=== PATIENT | male | born 1955 | race Caucasian/White ===

== ENCOUNTER → 2024-08-22 10:30 | Outpatient (BNVA) | payer MEDICARE, SELFPAY | PROVIDERS: PCP Family Medicine; Referring Provider Family Medicine; Visit Provider Podiatrist | DX: M10.071 Idiopathic gout, right ankle and foot (principal); L03.116 Cellulitis of left lower limb; R60.0 Localized edema; L97.522 Non-pressure chronic ulcer of other part of left foot with fat layer exposed; M86.9 Osteomyelitis, unspecified; M21.611 Bunion of right foot; M21.612 Bunion of left foot; M20.21 Hallux rigidus, right foot | CPT/HCPCS: 11042; 99204 ==

== ENCOUNTER 2024-08-22 11:35 | Outpatient (CLI) | payer MEDICARE, SELFPAY ==
--- NOTE | 2024-08-22 11:42 | DI.RAD_ITS ---
Exam(s) XR FOOT LT COMPLETE EXAM: XR FOOT LT COMPLETE CLINICAL HISTORY: Comparison, lt foot bunion, M21.612. TECHNIQUE: 2D digital imaging was performed. Three views. COMPARISON: CR LEFT FOOT COMPLETE from 02/23/2014 CR XR FOOT COMPLETE MIN 3V RT from 08/08/2024 CR XR FOOT RT COMPLETE from 08/22/2024 FINDINGS: BONES: No acute fracture is present. No bony destructive lesion is seen. Small spur at the lateral aspect of the 5th metatarsal head appears unchanged. Plantar calcaneal spur are also present. JOINTS: No dislocation present. Moderate to severe narrowing of the 1st MTP joint. Moderate hallux valgus. Spurring at posterior talocalcaneal joint. SOFT TISSUE: Vascular calcifications. IMPRESSION: Moderate degenerative changes at the 1st MTP joint moderate hallux valgus. DATA REPOSITORY: RADIATION DOSE DELIVERED:
--- NOTE | 2024-08-22 11:42 | DI.RAD_ITS ---
Exam(s) XR FOOT RT COMPLETE EXAM: XR FOOT RT COMPLETE CLINICAL HISTORY: Osteomyelitis? gout? Ulcer directly medial, bunion rt foot, hallux rigidus. TECHNIQUE: 2D digital imaging was performed. Three views. COMPARISON: CR LEFT FOOT COMPLETE from 02/23/2014 CR XR FOOT COMPLETE MIN 3V RT from 08/08/2024 FINDINGS: BONES: No acute fracture is present. No bony destructive lesion is seen. There is some deformity of the 1st metatarsal head which could in part be secondary to prior surgery. There are severe degenera tive changes of the 1st MTP joint with prominent spurring. Moderate hallux valgus. There also degen erative changes at the 1st metatarsal sesamoids. There are severe degenerative changes of the interp halangeal joint of the great toe. Accessory navicular. JOINTS: No dislocation present. Spurring noted at the dorsal aspect of the talus and navicular. Ham mertoe deformity of the 2nd toe. SOFT TISSUE: There is gauze overlying the foot. IMPRESSION: Advanced degenerative changes of the 1st MTP joint and hallux valgus. DATA REPOSITORY: RADIATION DOSE DELIVERED:
== END 2024-08-22 11:55 ==
LOC: DI 11:36
PROVIDERS: PCP Family Medicine; Visit Provider Podiatrist
DX: M21.611 Bunion of right foot; M20.21 Hallux rigidus, right foot; M21.612 Bunion of left foot
CPT/HCPCS: 73630

== ENCOUNTER 2024-08-22 12:02 | Outpatient (REF) | payer MEDICARE, SELFPAY | END 2024-08-22 12:03 | disposition home or self-care (01) | LOC: LBN 12:02 | PROVIDERS: PCP Family Medicine; Visit Provider Podiatrist | DX: S91.301A Unspecified open wound, right foot, initial encounter (principal); L03.90 Cellulitis, unspecified; M10.9 Gout, unspecified; M20.21 Hallux rigidus, right foot; M21.611 Bunion of right foot; M86.9 Osteomyelitis, unspecified | CPT/HCPCS: 87070; 87075; 87205 ==

== ENCOUNTER 2024-08-22 12:25 | Outpatient (CLI) | payer MEDICARE, SELFPAY ==
[2024-08-22 11:58] LABS: HCT 46.1 % (40.0-50.0); HGB 14.9 g/dL (13.5-17.5); MCH 30.7 pg (27.0-33.0); MCHC 32.3 % (32.0-36.0); MCV 95 fL (80-95); MPV 10.4 fL (8.0-11.0); Platelet Count 227 10^3/uL (130-400); RBC 4.86 10^6/uL (4.36-5.78); RDW 12.8 % (11.8-14.1); RDW-SD 44.5 fL; WBC 6.39 10^3/uL (4.4-10.8)
[2024-08-22 12:10] LABS: ESR 7 mm/hr (0-20)
[2024-08-22 12:22] LABS: Absolute Eosinophil Count 0.19 10^3/uL (0.0-0.7); Absolute Lymphocyte Count 2.68 10^3/uL (1.2-3.4); Absolute Monocyte Count 1.02 10^3/uL (0.1-0.8); Absolute Neutrophil Count 2.49 10^3/uL (1.2-6.7); Atypical Lymphocytes % 13 %; Bands % 1 %; Diff Comment Manual Differential; RBC Morphology Normal
[2024-08-22 12:32] LABS: C-Reactive Protein 0.51 mg/dL (<or=0.5)
== END 2024-08-22 12:26 | disposition home or self-care (01) ==
LOC: LBO 12:26
PROVIDERS: PCP Family Medicine; Visit Provider Podiatrist
DX: L03.90 Cellulitis, unspecified (principal); E79.0 Hyperuricemia without signs of inflammatory arthritis and tophaceous disease
CPT/HCPCS: 36415; 85652; 84550; 85025; 86140

== ENCOUNTER → 2024-08-31 09:21 | Outpatient (BNVA) | payer MEDICARE, SELFPAY | PROVIDERS: PCP Family Medicine; Referring Provider Family Medicine; Visit Provider Podiatrist | DX: L97.522 Non-pressure chronic ulcer of other part of left foot with fat layer exposed (principal); L03.116 Cellulitis of left lower limb; M10.9 Gout, unspecified; M21.611 Bunion of right foot; M21.612 Bunion of left foot; M86.9 Osteomyelitis, unspecified; M20.21 Hallux rigidus, right foot | CPT/HCPCS: 99214 ==

== ENCOUNTER 2024-09-05 06:58 | Day surgery (SDC) | payer MEDICARE, SELFPAY ==
[2024-09-05 07:12] VITALS: BP 151/100; PULSE 77; RESP 20; TEMP 36.4; O2SAT 99
[2024-09-05] MEDS: Lactated Ringers 1,000 ML 30 ML IV (07:30)
--- NOTE | 2024-09-05 07:39 | W.ANESPRE ---
General Info Date of Service Date Performed: 09/05/24 Height: 5 ft 11 in Weight: 94.7 kg Body Mass Index (BMI): 29.1 Surgical Procedure: Operation Date: 09/05/24 08:10 Proposed Procedure Side Surgeon p Bone Biopsy of Foot Right Arleen Ivy DPM Meds Allergies and Home Medications Allergies Allergy/AdvReac Type Severity Reaction Status Date / Time Horse/Equine Containing Allergy Mild Unknown Verified 09/05/24 07:10 Products Home Medication ?Medication ?Instructions ?Recorded allopurinol 100 mg tablet 100 mg PO DAILY 08/18/24 apixaban 5 mg tablet (Eliquis) 5 mg PO BID 08/18/24 diltiazem HCl 180 mg 180 mg PO HS 08/18/24 capsule,extended release 24 hr mupirocin 2 % topical ointment 1 applic topical TID 08/18/24 prednisolone 5 mg tablet See Rx Instructions PO BID 08/31/24 Current Visit Medications: Current Medications Generic Name Dose Route Start Last Admin Trade Name Freq PRN Reason Stop Dose Admin Ringer's Solution 1,000 mls @ 30 mls/hr 09/05/24 06:00 09/05/24 07:30 IV 09/05/24 23:59 30 mls/hr INFUSION LASHONDA Administration Cefazolin Sodium/Dextrose 2 gm in 50 mls @ 100 mls/hr 09/05/24 06:00 Ancef Duplex IVPB 09/05/24 23:59 PREOP LASHONDA IV Miscellaneous Supplies 1 each 09/05/24 06:00 Iv Access IV 09/05/24 23:59 DIRECTED LASHONDA Sodium Chloride 0 ml 09/05/24 06:00 Normal Saline Flush 10 Ml Syr IV 09/05/24 23:59 PRN PRN Sodium Chloride 0 ml 09/05/24 06:00 Normal Saline 10 Ml Vial IJ 09/05/24 23:59 DIRECTED PRN Sterile Water 0 ml 09/05/24 06:00 Water,Injection,Sterile 10 Ml Vial IJ 09/05/24 23:59 DIRECTED PRN PFSH Active Problems Active Problems: Problem Status Onset Code Ulcer of left foot with fat layer exposed Acute L97.522 Hallux rigidus of right foot Acute M20.21 Osteomyelitis Acute M86.9 Bunion, right foot Acute M21.611 Bunion, left foot Acute M21.612 Cellulitis Acute L03.90 Hypertension Chronic I10 Osteoarthritis of knee Acute M17.9 Chronic a-fib Acute I48.20 Foot ulcer Acute L97.509 Arthralgia of ankle Acute M25.579 Arthropathy Acute M12.9 Sleep apnea Chronic G47.30 Osteoarthritis Chronic M19.90 Gout Chronic M10.9 Hyperuricemia Chronic E79.0 Foot pain, left Acute M79.672 Medical History Medical History Cellulitis of left foot A-fib Tobacco Smoking/Tobacco Use Status: Current-Occasional Tobacco Type: cigars Alcohol Alcohol Intake: current Alcohol intake frequency: 3 or more drinks per day Alcohol type: wine Substance Use Substance use: Occasionally Substance use type: marijuana Details: Last use 09/04/24 Vital Signs and Lab Results Vital Signs Most Recent Vital Signs in EMR: Most Recent Vital Signs Temp Pulse Resp BP Pulse Ox 36.4 C L 77 20 151/100 H 99 09/05/24 07:12 09/05/24 07:12 09/05/24 07:12 09/05/24 07:12 09/05/24 07:12 Lab Results Blood Type / Crossmatch: No Data to Display Complete Blood Count: White Blood Count 20 10^3/uL (4.4-10.8) H 08/29/24 20:56 Red Blood Count 4.7 10^6/uL 08/29/24 20:57 Hemoglobin 14.4 g/dL 08/29/24 20:57 Hematocrit 44.2 % 08/29/24 20:58 Platelet Count 227 10^3/uL (130-400) 08/22/24 11:55 Complete Metabolic Panel: BUN 13 mg/dL (7-18) 08/29/24 20:55 Creatinine 1.01 mg/dL 08/29/24 20:55 Est GFR (CKD-EPI 2020) 80 mL/min/ 08/29/24 20:56 C-Reactive Protein 0.51 mg/dL (<or=0.5) H 08/22/24 11:55 Liver Function Panel: No Data to Display Coagulation Panel: No Data to Display Cardiac Panel: No Data to Display Arterial Blood Gas: No Data to Display Venous Blood Gas: No Data to Display Pancreas Panel: No Data to Display Thyroid Panel: No Data to Display Infectious Disease: No Data to Display Blood Cultures: No Data to Display Toxicology Panel: No Data to Display Anesthesia Assessment and Plan Anesthesia History Personal History: No History of Anesthesia Complications Family History: No Family History of Anesthesia Complications Exercise Tolerance Exercise Tolerance: Metabolic Equivalents>4 Pertinent Negatives Pertinent Negatives: No Symptoms of GERD Cardiac & Pulmonary Exam Cardiac Exam: Normal S1/S2 Heart Sounds Pulmonary Exam: Clear Bilateral Breath Sounds Implantable Cardiac Device Does patient have a Pacemaker or an ICD?: No Airway Exam Known Difficult Airway: No Mallampati Class: 2 Mouth Opening: Normal (> 3cm) Thyromental Distance: Greater than 3 cm Neck Range of Motion: Full ROM Neck Circumference: Normal Teeth Condition: Normal Dentition ASA Classification ASA Score: ASA 3 Emergency Case?: No NPO Status NPO Status: NPO Clears >2 hours, Solids >8 hours Anesthesia Plan Resuscitation Status: Full Code Anesthesia Technique: General Anesthesia Airway Planned: Natural Airway Monitors Used: Standard Monitors
[2024-09-05 07:42] VITALS: BMI 29.1
--- NOTE | 2024-09-05 08:33 | BONE_PTH ---
PATIENT: Alec Patino LOC: [facility] U#:[id number] AGE/SX: 69/M ROOM: RE09/05/[address]: Arleen Ivy DPM : 1955 BED: DIS: 09/05/2024 SPEC #: [id number] RECD: 09/05/24 13:09 STATUS: DANIELA REFrancisco #: [id number] HEMAL: 09/05/24 08:[address]: Arleen Ivy DEPT: Surgical Specimen RECD BY: Vicky Pinon ENTERED: 09/05/24 13:11 SP TYPE: Bone OTHR : JUANJO SAMANO Tissues: 1 - BONE BX/CURRETTE NOT PATH FRACTURE Procedures: GROSS AND MICRO LEVEL 5 DECALCIFICATION Comments: [id number] (SUBMITTED IN 100% ETHANOL)
[2024-09-05] MEDS: Lidocaine 1% Pres-Free 30 ML VIAL (08:34)
[2024-09-05] MEDS: ceFAZolin 2 GM/50 ML BAG IVPB (08:37)
[2024-09-05 08:51] VITALS: BP 98/66; PULSE 72; RESP 18; TEMP 36.3; O2SAT 95
--- NOTE | 2024-09-05 08:51 | W.PM.DSUDISC ---
Date of service: 09/05/24 Discharge Plan Disposition Patient Disposition: Home Condition: Stable Discharge Details Attending Provider: Arleen Ivy Primary Care Provider: JUANJO SAMANO Home Meds and New Rx's Prescriptions: No Action allopurinol 100 mg tablet 100 mg PO DAILY mupirocin 2 % ointment 1 applic topical TID diltiazem HCl 180 mg capsule,extended release 24hr 180 mg PO HS Eliquis 5 mg tablet 5 mg PO BID oxycodone-acetaminophen [Percocet] 5-325 mg tablet 1 tab PO Q8H MDD 3 pills 3 Days Qty: 9 0RF prednisolone 5 mg tablet See Rx Instructions PO BID Rx Instructions: unsure of dosage orally twice a day; Discharge Instructions Additional Instructions: Please keep the dressings clean, dry and intact. Do not let the dressings get wet. You may loosen the outer layer of dressings if you have pain. Keep your right foot elevated at all times. Apply ice behing the knee, ankle and along the bunion site 10 min on and 20 min off as much as possible. Please use your crutches and boot for ambulaton. Pain meds have been sent to your pharmacy. Please follow up on as scheduled. Present to the ER if you experience any calf pain, chest pain, shortness or breath, dizziness or any unusual symptoms. Stand Alone Forms: Podiatry Instructions-DSU Equipment/Supplies: Partial Weight Bearing Crutches Activity:: Elevate Shower/Bathe:: Cover Diet:: Normal Diet Discharge Orders Discharge Orders: Discharge Order (Routine); Ordered 09/05/24 Ordered By: Arleen Ivy DS: Diagnosis Discharge Diagnosis (1) Ulcer of left foot with fat layer exposed: Status: Acute (2) Osteomyelitis: Status: Acute (3) Hallux rigidus of right foot: Status: Acute (4) Gout: Status: Chronic (5) Hyperuricemia: Status: Chronic
--- NOTE | 2024-09-05 08:57 | W.PM.OP ---
Operative Note Operative Note PRE-OP DIAGNOSIS: Gout versus osteomyelitis, right first metatarsal head POST-OP DIAGNOSIS: same PROCEDURE: Bone biopsy, first metatarsal head right foot SURGEON: Arleen Ivy ANESTHESIA TYPE: Local By Surgeon (10 mL 1% Lidocaine pre op) Refer to Anesthesia Record ESTIMATED BLOOD LOSS: 1 PATHOLOGY: other (Bone biopsy, right first metatarsal head) COMPLICATIONS: None Patient was transported to: same day Patient's condition: stable Indications: 69-year-old male patient with longstanding history of gout and ulceration, with drainage, to the medial aspect of the first metatarsal head, right foot. There is a large bony prominence which is resulting in ulceration at this location. I discussed the importance of eventually removing the medial eminence and potentially fusing the first metatarsophalangeal joint to prevent recurrence of ulceration and gout. However, due to recurrent ulceration I recommended a bone biopsy and cultures to rule out osteomyelitis as the first step. Patient understood and agreed. I discussed all the risks, benefits and possible complications of the procedure with the patient including but not limited to pain, nerve pain, infection, infection to bone, bleeding, need for further surgery or amputation. Patient understands that he will most likely require another surgery. No guarantees or warranties were made or implied. Patient consented to the procedure. Consent form signed reviewed and in chart. Medical clearance signed reviewed and in chart. No contraindications noted to the procedure at this time. Procedure Description: Patient was brought to the operating room and placed in supine position with the anesthesia team. After induction of general anesthesia, a Moore block was performed to the right foot using 10 mL 1% lidocaine plain. Timeout was carried out. The right lower extremity was then scrubbed, prepped and draped in the usual aseptic manner. Attention was directed to the dorsal medial aspect of the left first metatarsal head on a 0.5 cm linear longitudinal incision was made directly over the ulceration to obtain the most advertising account representative bone biopsy specimen. The incision was deepened through the skin and subcutaneous tissue. The periosteum was reflected medially and laterally. A biopsy trocar was used to take 2 punch biopsy specimens from this incision site. These were passed from the operative field. Incision site was then flushed with copious amounts of sterile saline. The skin was then reapproximated using 4-0 Prolene. Dressings were then applied with Xeroform gauze, 4 x 4, Kerlix and Desmodn wrap. Patient tolerated the procedure and anesthesia well with vital signs stable and vascular status intact to the right lower extremity. Patient was transferred to same-day for further monitoring. Patient was prescribed pain medication. Patient is to follow-up in office on . Date of Procedure: 09/05/24
--- NOTE | 2024-09-05 08:57 | W.ANESPOSTOP ---
Postoperative Evaluation Date, Time and Location Date Performed: 09/05/24 Time Performed: 08:57 Patient Location: Day Surgery Unit Vital Signs Most Recent Imported Vital Signs: Most Recent Vital Signs Temp Pulse Resp BP Pulse Ox 36.3 C L 72 18 98/66 L 95 09/05/24 08:51 09/05/24 08:51 09/05/24 08:51 09/05/24 08:51 09/05/24 08:51 Pain Score Most Recent Pain Score: Most Recent Pain Score Pain Level 0 09/05/24 08:51 Assessment Mental Status: Arousable with meaningful communication Airway and Respiratory Function: Patent airway with normal (patient baseline) respiratory exam Cardiovascular Function: Hemodynamically Stable Hydration Status: Adequately Hydrated Nausea & Vomiting: No Nausea or Vomiting Pain: Pt. Denies Any Pain Peripheral Nerve Block: Patient did not receive a nerve block
[2024-09-05 09:20] VITALS: BP 109/80; PULSE 75; RESP 18; TEMP 36.3; O2SAT 99
== END 2024-09-05 10:00 | disposition home or self-care (01) ==
PROVIDERS: PCP Family Medicine; Visit Provider Podiatrist
PROC: (CPT 20220; principal; 2024-09-05 08:00)
DX: L97.522 Non-pressure chronic ulcer of other part of left foot with fat layer exposed (principal); M20.21 Hallux rigidus, right foot; M1A.0710 Idiopathic chronic gout, right ankle and foot, without tophus (tophi); D75.89 Other specified diseases of blood and blood-forming organs
CPT/HCPCS: 20220; 00123; 87070; 87075; 87205; 88304; 88307; 88311; J0690; J1100; J2003; J2371; J2405; J2704

== ENCOUNTER → 2024-09-08 10:55 | Outpatient (BNVA) | payer MEDICARE, SELFPAY | PROVIDERS: PCP Family Medicine; Referring Provider Family Medicine; Visit Provider Podiatrist | DX: Z98.890 Other specified postprocedural states (principal); M10.9 Gout, unspecified; L03.114 Cellulitis of left upper limb; L97.522 Non-pressure chronic ulcer of other part of left foot with fat layer exposed; M21.611 Bunion of right foot; M21.612 Bunion of left foot; M86.9 Osteomyelitis, unspecified; M20.21 Hallux rigidus, right foot; M76.61 Achilles tendinitis, right leg | CPT/HCPCS: 99213 ==

== ENCOUNTER → 2024-09-21 13:08 | Outpatient (BNVA) | payer MEDICARE, SELFPAY | PROVIDERS: PCP Family Medicine; Referring Provider Family Medicine; Visit Provider Podiatrist | DX: Z98.890 Other specified postprocedural states (principal); M10.9 Gout, unspecified; L97.522 Non-pressure chronic ulcer of other part of left foot with fat layer exposed; M21.611 Bunion of right foot; M21.612 Bunion of left foot; M86.8X7 Other osteomyelitis, ankle and foot; M20.21 Hallux rigidus, right foot; M76.61 Achilles tendinitis, right leg | CPT/HCPCS: 99215 ==

== ENCOUNTER → 2024-10-11 14:38 | Outpatient (BNVA) | payer MEDICARE, SELFPAY | PROVIDERS: PCP Family Medicine; Referring Provider Family Medicine; Visit Provider Podiatrist | DX: Z98.890 Other specified postprocedural states (principal); M10.9 Gout, unspecified; L03.116 Cellulitis of left lower limb; L97.522 Non-pressure chronic ulcer of other part of left foot with fat layer exposed; M21.612 Bunion of left foot; M21.611 Bunion of right foot; M86.9 Osteomyelitis, unspecified; M20.21 Hallux rigidus, right foot; M76.61 Achilles tendinitis, right leg | CPT/HCPCS: 99214 ==

== ENCOUNTER → 2024-11-03 15:27 | Outpatient (BNVA) | payer MEDICARE, SELFPAY | PROVIDERS: PCP Family Medicine; Referring Provider Family Medicine; Visit Provider Podiatrist | DX: M20.21 Hallux rigidus, right foot (principal); Z98.890 Other specified postprocedural states; M10.9 Gout, unspecified; L03.116 Cellulitis of left lower limb; L97.522 Non-pressure chronic ulcer of other part of left foot with fat layer exposed; M21.612 Bunion of left foot; M21.611 Bunion of right foot; M86.9 Osteomyelitis, unspecified; M76.61 Achilles tendinitis, right leg | CPT/HCPCS: 99214 ==

== ENCOUNTER 2024-11-03 17:00 | Outpatient (CLI) | payer MEDICARE, SELFPAY ==
--- NOTE | 2024-11-03 16:45 | DI.RAD_ITS ---
Exam(s) XR FOOT RT COMPLETE EXAM: XR FOOT RT COMPLETE CLINICAL HISTORY: M20.21 Hallux rigidus, pain in right foot. TECHNIQUE: 2D digital imaging was performed. COMPARISON: CR XR FOOT LT COMPLETE from 08/22/2024 CR XR FOOT RT COMPLETE from 08/22/2024 FINDINGS: 3 views No evidence of fracture or diastasis of the Lisfranc joint. Hallux valgus is again noted and significant degenerative change in the great toe metatarsophalangeal joint. The appearance of the medial aspect of the head of the great toe metatarsal is unchanged fro m 08/22/2024 and may reflect prior surgical shaving of the medial head. No evidence of osteomyelitis . Degenerative changes are again noted in the interphalangeal joint of the great toe and there are dege nerative changes at the great toe metatarsal sesamoids again evident. On the medial aspect of the foot there is an accessory ossicle adjacent to the navicular tuberosity a gain noted. On the lateral view there is again noted dorsal beaking on both sides of the talonavicular joint. IMPRESSION: Multilevel findings as above but unchanged radiographically from 08/22/2024 DATA REPOSITORY: RADIATION DOSE DELIVERED:
== END 2024-11-03 17:20 ==
LOC: DI 17:00
PROVIDERS: PCP Family Medicine; Visit Provider Podiatrist
DX: M20.21 Hallux rigidus, right foot (principal)
CPT/HCPCS: 73630

== ENCOUNTER 2024-11-14 06:23 | Day surgery (SDC) | payer MEDICARE, SELFPAY ==
[2024-11-14] VITALS (12 sets, daily range): BP systolic 92–124; BP diastolic 55–86; PULSE 77–93; RESP 15–20; TEMP 36.1–36.5; O2SAT 92–98; BMI 28.9
[2024-11-14] MEDS: Lactated Ringers 1,000 ML 30 ML IV (07:21)
--- NOTE | 2024-11-14 07:42 | W.ANESPRE ---
General Info Date of Service Date Performed: 11/14/24 Height: 5 ft 11 in Weight: 94.2 kg Body Mass Index (BMI): 28.9 Surgical Procedure: Operation Date: 11/14/24 08:10 Proposed Procedure Side Surgeon p Arthrodesis, 1st Metatarsophalangeal Joint Foot, vs Cheilectomy Right Arleen Ivy DPM Meds Allergies and Home Medications Allergies Allergy/AdvReac Type Severity Reaction Status Date / Time No Known Allergies Allergy Verified 11/14/24 06:38 Home Medication ?Medication ?Instructions ?Recorded apixaban 5 mg tablet (Eliquis) 5 mg PO BID 08/18/24 diltiazem HCl 180 mg 180 mg PO HS 08/18/24 capsule,extended release 24 hr allopurinol 100 mg tablet 300 mg PO DAILY 11/03/24 ibuprofen 800 mg tablet (IBU) 800 mg PO ONCE 11/14/24 Current Visit Medications: Current Medications Generic Name Dose Route Start Last Admin Trade Name Freq PRN Reason Stop Dose Admin Ringer's Solution 1,000 mls @ 30 mls/hr 11/14/24 06:00 11/14/24 07:21 IV 11/14/24 23:59 30 mls/hr INFUSION LASHONDA Administration Cefazolin Sodium/Dextrose 2 gm in 50 mls @ 100 mls/hr 11/14/24 06:00 Ancef Duplex IVPB 11/14/24 23:59 PREOP LASHONDA IV Miscellaneous Supplies 1 each 11/14/24 06:00 Iv Access IV 11/14/24 23:59 DIRECTED LASHONDA Sodium Chloride 0 ml 11/14/24 06:00 Normal Saline Flush 10 Ml Syr IV 11/14/24 23:59 PRN PRN Sodium Chloride 0 ml 11/14/24 06:00 Normal Saline 10 Ml Vial IJ 11/14/24 23:59 DIRECTED PRN Sterile Water 0 ml 11/14/24 06:00 Water,Injection,Sterile 10 Ml Vial IJ 11/14/24 23:59 DIRECTED PRN PFSH Active Problems Active Problems: Problem Status Onset Code Achilles tendinitis, right leg Acute M76.61 Ulcer of left foot with fat layer exposed Acute L97.522 Hallux rigidus of right foot Acute M20.21 Osteomyelitis Acute M86.9 Bunion, right foot Acute M21.611 Bunion, left foot Acute M21.612 Cellulitis Acute L03.90 Hypertension Chronic I10 Osteoarthritis of knee Acute M17.9 Chronic a-fib Acute I48.20 Foot ulcer Acute L97.509 Arthralgia of ankle Acute M25.579 Arthropathy Acute M12.9 Sleep apnea Chronic G47.30 Osteoarthritis Chronic M19.90 Gout Chronic M10.9 Hyperuricemia Chronic E79.0 Foot pain, left Acute M79.672 Medical History Medical History Cellulitis of left foot A-fib Medical History Comments:: Pt. states he is having a current gout flare up on Right ankle Surgical History Surgical History History of bunionectomy of right great toe 12-13 years ago Hx of inguinal hernia repair x 3 Hx of biopsy R foot Tobacco Smoking/Tobacco Use Status: Current-Occasional Tobacco Type: cigars Alcohol Alcohol Intake: current Alcohol intake frequency: 3 or more drinks per day Alcohol type: wine Substance Use Substance use: Occasionally Substance use type: marijuana Details: alcohol: t-1. 1.5 glasses. Marijuana: t-14, smoking, small bowl Vital Signs and Lab Results Vital Signs Most Recent Vital Signs in EMR: Most Recent Vital Signs Temp Pulse Resp BP Pulse Ox 36.5 C 85 20 124/86 98 11/14/24 06:49 11/14/24 06:49 11/14/24 06:49 11/14/24 06:49 11/14/24 06:49 Lab Results Blood Type / Crossmatch: No Data to Display Complete Blood Count: White Blood Count 8.0 10^3/uL (4.4-10.8) 10/19/24 15:59 Red Blood Count 4.7 10^6/uL 10/19/24 15:59 Hemoglobin 14.2 g/dL 10/19/24 16:00 Hematocrit 44.5 % 10/19/24 16:00 Complete Metabolic Panel: Creatinine 0.8 mg/dL 10/19/24 16:01 Est GFR (CKD-EPI 2020) 95 mL/min/ 10/19/24 16:01 Glucose 108 mg/dL 10/19/24 16:02 Liver Function Panel: No Data to Display Coagulation Panel: No Data to Display Cardiac Panel: No Data to Display Arterial Blood Gas: No Data to Display Venous Blood Gas: No Data to Display Pancreas Panel: No Data to Display Thyroid Panel: No Data to Display Infectious Disease: No Data to Display Blood Cultures: No Data to Display Toxicology Panel: No Data to Display Imaging and Studies Imaging and Studies Study information below may be from another EMR and interpreted by another provider. Please see original notes in EMR for more complete details. EKG Summary: 09/01/24: Afib Anesthesia Assessment and Plan Anesthesia History Personal History: No History of Anesthesia Complications Family History: No Family History of Anesthesia Complications Exercise Tolerance Exercise Tolerance: Metabolic Equivalents>4 Pertinent Negatives Pertinent Negatives: No Symptoms of GERD Cardiac & Pulmonary Exam Cardiac Exam: Normal S1/S2 Heart Sounds Pulmonary Exam: Rhonchi Present (Reports he's had a prolonged period of inactivity and attributes less capacity in last few months. No recent viral illnesses.) Implantable Cardiac Device Does patient have a Pacemaker or an ICD?: No Airway Exam Known Difficult Airway: No Mallampati Class: 2 Mouth Opening: Normal (> 3cm) Thyromental Distance: Greater than 3 cm Neck Range of Motion: Full ROM Neck Circumference: Normal Teeth Condition: Normal Dentition ASA Classification ASA Score: ASA 3 Emergency Case?: No NPO Status NPO Status: NPO Clears >2 hours, Solids >8 hours Anesthesia Plan Resuscitation Status: Full Code Anesthesia Technique: General Anesthesia Airway Planned: LMA Monitors Used: Standard Monitors and SedLine
[2024-11-14] MEDS: ceFAZolin 2 GM/50 ML BAG IVPB (08:13)
[2024-11-14] MEDS: Lidocaine 1% Pres-Free 30 ML VIAL (08:38)
--- NOTE | 2024-11-14 08:40 | BONE_PTH ---
PATIENT: Alec Patino LOC: [facility] U#:[id number] AGE/SX: 69/M ROOM: RE11/14/[address]: Arleen Ivy DPM : 1955 BED: DIS: 11/14/2024 SPEC #: [id number] RECD: 11/14/24 13:19 STATUS: DANIELA REQ #: [id number] HEMAL: 11/14/24 08:[address]: Arleen Ivy DEPT: Surgical Specimen RECD BY: Vicky Pinon ENTERED: 11/14/24 13:20 SP TYPE: Bone OTHR DR: JUANJO SAMANO [facility] Tissues: 1 - BONE BX/CURRETTE NOT PATH FRACTURE Procedures: GROSS AND MICRO LEVEL 3 DECALCIFICATION Comments: [id number]
--- NOTE | 2024-11-14 10:15 | DI.RAD_ITS ---
Exam(s) XR FOOT RT LIMITED EXAM: XR FOOT RT LIMITED CLINICAL HISTORY: Hallux rigidus of right foot. TECHNIQUE: 2D digital imaging was performed. COMPARISON: No exams were available for comparison FINDINGS: Fluoroscopy was provided intraoperatively during placement of dorsal fusion plate across the great to e metatarsophalangeal joint. See procedure report for details IMPRESSION: Radiation exposure index/cumulative dose:Ka,r= 0.6071 mGy DATA REPOSITORY: RADIATION DOSE DELIVERED:
--- NOTE | 2024-11-14 10:47 | W.PM.DSUDISC ---
Date of service: 11/14/24 Discharge Plan Disposition Patient Disposition: Home Condition: Stable Discharge Details Attending Provider: Arleen Ivy Primary Care Provider: JUANJO SAMANO Home Meds and New Rx's Prescriptions: No Action diltiazem HCl 180 mg capsule,extended release 24hr 180 mg PO HS Eliquis 5 mg tablet 5 mg PO BID allopurinol 100 mg tablet 300 mg PO DAILY ibuprofen [IBU] 800 mg tablet 800 mg PO ONCE Patient Comments: pt reports BID Discharge Instructions Additional Instructions: Please keep the dressings clean, dry and intact. Do not let the dressings get wet. Please keep your foot elevated at all times. Do not put weight on the right foot. Please use crutches. Apply ice behind the knee, ankle and around the surgical site 10 minutes on, 20 minutes off [id number]. Pain medications were sent to your pharmacy. Follow-up on . Stand Alone Forms: Podiatry Instructions-DSU Equipment/Supplies: Non-Weight Bearing Crutches Activity:: Elevate Remove Dressings/Wound Care:: Do Not Remove Shower/Bathe:: Cover Diet:: Normal Diet Discharge Orders Discharge Orders: Discharge Order (Routine); Ordered 11/14/24 Ordered By: Arleen Ivy DS: Diagnosis Discharge Diagnosis (1) Hallux rigidus of right foot: Status: Acute (2) Bunion, right foot: Status: Acute (3) Gout: Status: Chronic
--- NOTE | 2024-11-14 10:49 | W.PM.OP ---
Operative Note Operative Note PRE-OP DIAGNOSIS: Hallux rigidus, right foot Bunion, right foot Healed ulcer, right foot Gout POST-OP DIAGNOSIS: same PROCEDURE: Arthrodesis, first metatarsophalangeal joint, right foot SURGEON: Arleen Ivy ANESTHESIA TYPE: Local By Surgeon (20 mL 1% lidocaine plain.) Refer to Anesthesia Record ESTIMATED BLOOD LOSS: 5 PATHOLOGY: other (Bone cultures, gouty tophus, right first metatarsophalangeal joint) TOURNIQUET TIME: 118 COMPLICATIONS: None Patient was transported to: same day Patient's condition: stable Implants: MTP standard 0 degree plate 18 x 18 x 18 stable 16 mm locking screw x 3 20 mm locking screw x 1 Indications: 69-year-old male patient with a large bunion deformity with hallux rigidus to the right. Patient recently had an ulcer to the medial aspect of the right first MPJ secondary to bony prominence and gout. Infection has been ruled out at this time however risk does persist. I recommend a fusion. Discussed this in detail with the infectious disease team as well as the patient. We will proceed with first MPJ fusion. Chart was reviewed. Consent form was signed. Images were reviewed. No contraindications to the procedure at this time. 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 Following sedation, local anesthesia was obtained utilizing 20mL % lidocaine plain. An ankle tourniquet was applied to the patient's Right ankle. The foot was then scrubbed, prepped, and draped in the usual aseptic manner. The patient's right foot was then exsanguinated using and esmarc and the tourniquet was then inflated. Attention was then directed to the dorsal aspect of the first metatarsal head of the right foot where an approximately 5cm linear longitudinal incision was made medial and parallel to the tendon of the extensor hallucis longus. The incision was deepened through the subcutaneous tissues using sharp and blunt dissection. Care was taken to identify and retract all vital neural and vascular structures. All bleeders were ligated and cauterized as necessary. At this time a linear longitudinal incision was made and a capsulotomy was performed over the dorsal aspect of the first metatarsal-phalangeal joint. The periosteal and capsular structures were then carefully dissected free and reflected medially and laterally thus exposing the head of the first metatarsal. Utilizing a bone saw, the dorsal prominence of the metatarsal head was resected and passed from the operative field. Utilizing a ronguer, the dorsal, medial and lateral prominences were removed from the base of the proximal phalanx. Bone specimen was sent to microbiology for cultures and pathology. Next, a guide wire was placed centrally in the head of the 1st metatarsal. A reamer was used to reshape the metatarsal head and remove all cartilage. Any cartilage that remained was removed with a bone rasp. The guide wire was removed. The same was done to the base of the proximal phalanx with a guide wire placed centrally in the base. A reamer was used to reshape the base of the proximal phalanx and remove all cartilage. The guide wire was removed. Next, the joint was flushed with copious amounts of sterile saline. The joint was then fenestrated at either end. At this time the metatarsal head and base of the proximal phalanx were compressed together and held in place with a k-wire for temporary fixation. The plate was placed over 1st MTPJ. A BB tack was placed in the proximal and distal medial hole to provide temporary fixation. Fixation and correction was confirmed using intraoperative fluoroscopy and was noted to be excellent. A staple was used then for compression across the joint. Next, locking screws were placed in the remainder of the screw holes. At this time the temporary fixation across the MTPJ was removed. The incision was flushed with copious amounts of normal saline. The periosteal and capsular structures were reaproximated using 2-0 Vicryl. The tourniquet was then deflated. Subcutaneous tissue was then closed with 4-0 Vicryl. Skin edges were reapproximated and coapted using 4-0 nylon. Upon completion of the procedure the incision was dressed with Xeroform gauze, 4x4s, palomo, and an Desmond wrap. The patient tolerated the procedure and anesthesia well and was transferred to the recovery room with all vital signs stable and vascular status intact to the left foot. Following a period of postoperative monitoring the patient will be discharged to home and given written instructions and prescriptions. Patient is to keep the right lower extremity elevated at all times. Patient has an appointment to follow-up on . Date of Procedure: 11/14/24
--- NOTE | 2024-11-14 11:33 | W.ANESPOSTOP ---
Postoperative Evaluation Date, Time and Location Date Performed: 11/14/24 Time Performed: 11:33 Patient Location: Day Surgery Unit Vital Signs Most Recent Imported Vital Signs: Most Recent Vital Signs Temp Pulse Resp BP Pulse Ox 36.3 C L 78 18 108/77 95 11/14/24 11:03 11/14/24 11:03 11/14/24 11:03 11/14/24 11:03 11/14/24 11:03 Pain Score Most Recent Pain Score: Most Recent Pain Score Pain Level 0 11/14/24 11:03 Assessment Mental Status: Awake (Alert & Oriented to Patient Baseline) Airway and Respiratory Function: Patent airway with normal (patient baseline) respiratory exam Cardiovascular Function: Hemodynamically Stable Hydration Status: Adequately Hydrated Nausea & Vomiting: No Nausea or Vomiting Pain: Pt. Denies Any Pain Peripheral Nerve Block: Patient did not receive a nerve block
--- NOTE | 2024-11-14 12:51 | PT.INIE ---
PT Notes Physical Therapy Day Surgery Initial Evaluation Date: 11/14/2024 Referring Doctor: Dr Ivy PT Orders: PT CONSULT: Eval for assistive device Precautions: Nonweightbearing with crutches Patient Profile/Admitting Diagnosis: Patient is 69-year-old male presented status post elective right first MTP arthrodesis by Dr. Ivy on 11/14/2024. Postop uncomplicated. PMHX: Achilles tendinitis, right leg (Acute) Ulcer of left foot with fat layer exposed (Acute) Hallux rigidus of right foot (Acute) Osteomyelitis (Acute) Bunion, right foot (Acute) Bunion, left foot (Acute) Cellulitis (Acute) Hypertension (Chronic) Osteoarthritis of knee (Acute) Chronic a-fib (Acute) Foot ulcer (Acute) Arthralgia of ankle (Acute) Arthropathy (Acute) Sleep apnea (Chronic) Osteoarthritis (Chronic) Gout (Chronic) Hyperuricemia (Chronic) Foot pain, left (Acute) Medical History Cellulitis of left foot A-fib Social History/Home Situation: Pt resides with in 2 story home with no steps to enter through the garage. Pt has 13 steep steps with left rail to his Bedroom and bathtub/shower. Pt's reports they do have a bathroom and a recliner he could sleep on the first floor. Equipment Owned/DME: crutches; Pt was fitted for and issued FWW. Subjective: Pt reports he was NWB for a few days 3 weeks ago and he was able to do it with no issues. Pt and able to vocalize and agree to remain on the first floor of the home until HH PT assesses. Pt initially felt he would be fine however by end of session he was able to realize the potential risk for fall and injury if he utilizes the crutches vs FWW. Pt reports he has a friend that has a knee walker available if the doctor will allow him to use it. Objective: [] General Observation: alert male upright on stretcher with present in room. Mental Status: alert and O x 4, impulsive, pt needed frequent cueing for sequencing and carryover of NWB RLE. Pt agreeable to perform assessment Pain: right shoulder 2/10, right foot denies pain at this time ROM: [] Right Upper Extremity: WNL Left Upper Extremity: WNL BLE: WNL except right ankle and foot NT Strength: [] Right Upper Extremity: shoulder 3/5, elbow 4/5 neurology epilepsy physician strong Left Upper Extremity: Grossly 4/5 Right Lower Extremity: Hip and knee 3/5 ankle not tested Left Lower Extremity: Grossly hip 3+/5 knee 3+/5 ankle 3+/5 Sensation: Intact Bed Mobility/Transfers: Supine to sit independent Sit to stand contact-guard assist with cues for hand placement and crutch management Stand to sit min assist with cues for hand placement and crutch management Bed to chair mod assist of 1 and min assist of 1 with axillary crutches step turn with continuous cues Gait: Mod assist x 2 ambulate 12 feet with axillary crutches with continuous cues for sequencing to shortened step length and to increase left knee extension at mid stance on left. Patient very unstable poor ankle strategies and hip to sustain upright posture without assistance. Balance: Static Sitting: Normal Dynamic Sitting: Good Static Standing: Fair minus with crutches Dynamic Standing: Poor plus with crutches Special Tests: [] Mobility Limitations Standardized Measure [] [facility] 6 clicks Basic Mobility Inpatient Short Form: [] Raw Score: 16 CMS Score: 54.16% Treatment: Informed Consent/Education: Patient instructed in purpose of PT consult. Pt and instructed in use of FWW for all mobility. Pt should take frequent stand and or sit rests while ambulating and limit distances of ambulation to very short ( under 25 feet) d/t fatigue and impaired strength. Patient and vocalized understanding of recommendations for use of FWW, benefits of frequent standing rest while ambulating, not to utilize crutches, and to remain on first floor until assessed by home health PT. Gait training with crutches : Mod A of 2 for stability 12 feet x 1, 8 feet x 1 with continuous cues for sequencing and to straighten left knee during weight bearing as pt has tendency to allow knee flexion at mid stance Gait training with FWW initially mod A of 1 15 feet then advanced to 25 feet x 1 with CGA and wheelchair follow for safety and stand rest every 5 feet. As pt fatigues he is noted to increase left knee flexion at mid stance and have difficulty WB through BUE to swing through. Assessment: Pt is 69 yo male presenting with decline in functional mobility d/t NWB RLE. Pt with impaired right shoulder strength with new onset after starting to lift weights in prep for this surgery and need to be NWB. Patient presents with clinical signs and symptoms consistent with current/admitting diagnoses that have resulted to mobility limitations, gait instability, generalized weakness, and impairment of motor control as demonstrated by the following impairment level findings: 1. Decreased strength to BUE and BLE major muscle groups 2. Impaired standing balance while NWB 3. Limitation of joint range of motion in right foot/ankle 4. impaired functional activity tolerance 5. NWB R foot 6. Impulsivity/ impaired judgement Impairments are contributing to the following functional limitations: 1. Inability to safely ambulate without assistive device 2. Increase completion time for mobility ADL performance 3. Increased fall risk 4. Inability to perform stairs safely at NWB level Patient is assessed as a moderate complexity based on the following: History: 69-year-old male with impairment level findings, functional limitations, and past medical history as indicated above Examination: Demonstrable impairment in strength, balance, and mobility level with underlying impairments and functional limitations as documented above Presentation: evolving Decision Making: moderate Goals: N/A. discharge to home Plan of Care/Treatment Plan: N/A. PT evaluation and 1-2 treatment session only for functional mobility training using recommended AD and for HEP instruction. DISCHARGE RECOMMENDATIONS: Home with HHPT and use of FWW. Pt to remain on first floor of home. Pt to have assistance for all mobility for safety with FWW due to NWB status. Pt should not perform stairs until assessment by HH PT TREATMENT CODE/TIME:29145, [id number]/ [id number] Thank you for the opportunity to participate in the care of this patient. Yane Castaneda PT [facility]
== END 2024-11-14 12:58 | disposition home or self-care (01) ==
PROVIDERS: PCP Family Medicine; Visit Provider Podiatrist
PROC: (CPT 28750; principal; 2024-11-14 08:00)
DX: M20.21 Hallux rigidus, right foot (principal); M21.611 Bunion of right foot; M10.9 Gout, unspecified
CPT/HCPCS: 28750; C1889; 00123; 76000; 87077; 97116; 97162; 73620; 87070; 87075; 87186; 87205; 88304; 88311; J0690; J1100; J1885; J2003; J2371; J2405; J2704; J3010

== ENCOUNTER 2024-11-17 00:57 | Outpatient (CLI) | payer MEDICARE, SELFPAY ==
--- NOTE | 2024-11-17 10:45 | DI.RAD_ITS ---
Exam(s) XR FOOT RT COMPLETE EXAM: XR FOOT RT COMPLETE CLINICAL HISTORY: Post op pain,hallux rigidus rt foot, m20.21,g89.18. TECHNIQUE: 2D digital imaging was performed. COMPARISON: CR XR FOOT RT COMPLETE from 11/03/2024 FINDINGS: 3 views There has been interval surgery with placement of dorsal fusion plate hardware across the great toe m etatarsophalangeal joint. No evidence of fracture nor hardware loosening. No obvious radiographic evidence of osteomyelitis. No new fractures evident in the foot. Degenerative changes again noted in the interphalangeal joint of the great toe. IMPRESSION: Recently placed dorsal fusion hardware across the great toe metatarsophalangeal joint. Satisfactory appearance DATA REPOSITORY: RADIATION DOSE DELIVERED:
== END 2024-11-17 01:17 ==
LOC: DI 00:57
PROVIDERS: PCP Family Medicine; Visit Provider Podiatrist
DX: G89.18 Other acute postprocedural pain (principal); M20.21 Hallux rigidus, right foot; Z98.890 Other specified postprocedural states; M10.9 Gout, unspecified; L03.115 Cellulitis of right lower limb; L97.522 Non-pressure chronic ulcer of other part of left foot with fat layer exposed; M21.612 Bunion of left foot; M21.611 Bunion of right foot; M86.9 Osteomyelitis, unspecified; M76.61 Achilles tendinitis, right leg
CPT/HCPCS: 99024; 73630

== ENCOUNTER 2024-11-24 01:08 | Outpatient (CLI) | payer MEDICARE, SELFPAY ==
--- NOTE | 2024-11-24 07:30 | DI.RAD_ITS ---
Exam(s) XR FOOT RT COMPLETE EXAM: XR FOOT RT COMPLETE CLINICAL HISTORY: monitoring post-op PAIN 11/15 last XR 11/17,HALLUX RIGIDUS RT FOOT. TECHNIQUE: 2D digital imaging was performed of the right foot. Three images were obtained. AP, obl ique and lateral views were obtained. COMPARISON: CR XR FOOT RT COMPLETE from 11/17/2024 FINDINGS: BONES: No acute fracture is present. There are stable postsurgical changes of a 1st MTP joint fusion. The orthopedic hardware appears unchanged. JOINTS: No dislocation present. Degenerative changes are seen in the foot particularly at the interph alangeal joint of the great toe. SOFT TISSUE: There is soft tissue swelling around the 1st MTP joint. IMPRESSION: No significant change in appearance of the right foot since 11/17/2024. DATA REPOSITORY: RADIATION DOSE DELIVERED:
== END 2024-11-24 01:28 ==
LOC: DI 01:08
PROVIDERS: PCP Family Medicine; Visit Provider Podiatrist
DX: G89.18 Other acute postprocedural pain (principal); M20.21 Hallux rigidus, right foot; M86.9 Osteomyelitis, unspecified; Z98.890 Other specified postprocedural states; M10.9 Gout, unspecified; L97.522 Non-pressure chronic ulcer of other part of left foot with fat layer exposed; M21.612 Bunion of left foot; M21.611 Bunion of right foot; M76.61 Achilles tendinitis, right leg; L03.116 Cellulitis of left lower limb
CPT/HCPCS: 99024; 73630

== ENCOUNTER 2024-12-07 00:13 | Outpatient (CLI) | payer MEDICARE, SELFPAY ==
--- NOTE | 2024-12-07 07:00 | DI.RAD_ITS ---
Exam(s) XR FOOT RT COMPLETE EXAM: XR FOOT RT COMPLETE CLINICAL HISTORY: ? Healing,? Hardware failure,osteomyelitis, hallux rigidus rt foot, m86.9,. TECHNIQUE: 2D digital imaging was performed. Three views. COMPARISON: CR XR FOOT RT COMPLETE from 11/24/2024 FINDINGS: BONES: No acute fracture is present. No bony destructive lesion is seen. There is hardware spanning the 1st MTP joint. No change in position. No evidence of fracture. No abnormal bony lucencies. JOINTS: No dislocation present. SOFT TISSUE: Swelling over the dorsum of the foot as well as great toe. No foreign body. IMPRESSION: Soft tissue swelling. Stable appearance of hardware. No abnormal lucencies identified. DATA REPOSITORY: RADIATION DOSE DELIVERED:
== END 2024-12-07 00:33 ==
LOC: DI 00:13
PROVIDERS: PCP Family Medicine; Visit Provider Podiatrist
DX: M20.21 Hallux rigidus, right foot (principal); M86.9 Osteomyelitis, unspecified
CPT/HCPCS: 73630

== ENCOUNTER 2024-12-07 10:00 | Outpatient (RCR) | payer MEDICARE, SELFPAY ==
--- NOTE | 2024-11-23 15:50 | DI.RAD_ITS ---
Exam(s) XR LINE PLACEMENT PICC/CVA EXAM: XR LINE PLACEMENT PICC/CVA CLINICAL HISTORY: CONFIRM PICC PLACEMENT. TECHNIQUE: 2D digital imaging was performed. COMPARISON: No exams were available for comparison FINDINGS: Heart size is normal. The mediastinum is not widened. Lungs are clear with no infiltrates nor pleural effusions although the costophrenic angles are not co mpletely included in the field of view. There is no evidence of pulmonary edema. No pneumothorax. There is a right-sided PICC line in place. Its distal tip is in the distal SVC in good position. IMPRESSION: Satisfactory position of the PICC line. No significant pulmonary findings. DATA REPOSITORY: RADIATION DOSE DELIVERED:
[2024-11-23] MEDS: ceFAZolin 2 GM/50 ML BAG IVPB (16:00)
[2024-11-23] MEDS: Normal Saline Flush 5 ML SYR IVP (16:00)
[2024-11-23 16:29] LABS: HCT 38.3 % (40.0-50.0); HGB 12.6 g/dL (13.5-17.5); MCH 30.4 pg (27.0-33.0); MCHC 32.9 % (32.0-36.0); MCV 92 fL (80-95); Platelet Count 404 10^3/uL (130-400); RBC 4.15 10^6/uL (4.36-5.78); RDW 13.3 % (11.8-14.1); RDW-SD 45.3 fL; WBC 10.14 10^3/uL (4.4-10.8)
[2024-11-23 16:44] LABS: ALT 43 U/L (16-63); AST 25 U/L (15-37); Albumin 2.6 g/dL (3.4-5.0); Alkaline Phosphatase 86 U/L (46-116); Anion Gap 8.3 mmol/L (3-11); BUN 16 mg/dL (7-18); Bilirubin, Total 0.4 mg/dL (0.2-1.0); C-Reactive Protein 10.94 mg/dL (<or=0.5); CO2 27.7 mmol/L (21.0-32.0); CREATININE 0.7 mg/dL (0.70-1.30); Calcium 9.3 mg/dL (8.5-10.1); Chloride 103 mmol/L (98-107); Estimated GFR 98.51 (mL/min/1.73m2); Glucose 97 mg/dL (74-106); Sodium 139 mmol/L (136-145); Total Protein 7.4 g/dL (6.4-8.2)
[2024-11-23 16:49] LABS: Absolute Eosinophil Count 0.41 10^3/uL (0.0-0.7); Absolute Lymphocyte Count 2.33 10^3/uL (1.2-3.4); Absolute Monocyte Count 0.61 10^3/uL (0.1-0.8); Absolute Neutrophil Count 6.79 10^3/uL (1.2-6.7); Bands % 5 %; Diff Comment Manual Differential; RBC Morphology Normal
[2024-11-24] MEDS: Normal Saline Flush 10 ML SYR IVP (12:21)
[2024-11-25] MEDS: Normal Saline Flush 10 ML SYR IVP (08:54)
[2024-11-30] MEDS: Normal Saline Flush 10 ML SYR IVP (10:50)
[2024-11-30 11:24] LABS: Abs Immature Grans 0.06 10^3/uL (0.0-0.06); Absolute Basophil Count 0.06 10^3/uL (0.0-0.2); Absolute Eosinophil Count 0.28 10^3/uL (0.0-0.7); Absolute Lymphocyte Count 2.04 10^3/uL (1.2-3.4); Absolute Monocyte Count 1.21 10^3/uL (0.1-0.8); Basophils % 0.5 %; Eosinophils % 2.5 %; HCT 38.8 % (40.0-50.0); HGB 12.5 g/dL (13.5-17.5); Immature Grans % 0.5 %; Lymphocytes % 17.9 %; MCH 30.4 pg (27.0-33.0); MCHC 32.2 % (32.0-36.0); MCV 94 fL (80-95); MPV 10.7 fL (8.0-11.0); Monocytes % 10.6 %; Platelet Count 420 10^3/uL (130-400); RBC 4.11 10^6/uL (4.36-5.78); RDW 13.5 % (11.8-14.1); RDW-SD 46.8 fL; WBC 11.39 10^3/uL (4.4-10.8)
[2024-11-30 11:25] LABS: Absolute Neutrophil Count 7.75 10^3/uL (1.2-6.7)
[2024-11-30 11:40] LABS: ALT 16 U/L (16-63); AST 23 U/L (15-37); Albumin 2.8 g/dL (3.4-5.0); Alkaline Phosphatase 100 U/L (46-116); Anion Gap 7.3 mmol/L (3-11); BUN 14 mg/dL (7-18); Bilirubin, Total 0.2 mg/dL (0.2-1.0); CO2 28.7 mmol/L (21.0-32.0); CREATININE 0.8 mg/dL (0.70-1.30); Calcium 9.5 mg/dL (8.5-10.1); Chloride 104 mmol/L (98-107); Estimated GFR 94.62 (mL/min/1.73m2); Glucose 74 mg/dL (74-106); Potassium 4.1 mmol/L (3.5-5.1); Sodium 140 mmol/L (136-145); Total Protein 7.7 g/dL (6.4-8.2)
[2024-12-07] MEDS: Normal Saline Flush 10 ML SYR IVP (11:00)
[2024-12-07 11:01] LABS: Abs Immature Grans 0.12 10^3/uL (0.0-0.06); Absolute Lymphocyte Count 2.78 10^3/uL (1.2-3.4); Absolute Monocyte Count 1.89 10^3/uL (0.1-0.8); Basophils % 0.7 %; Eosinophils % 2.2 %; HCT 39.6 % (40.0-50.0); HGB 12.7 g/dL (13.5-17.5); Lymphocytes % 23.1 %; MCH 29.9 pg (27.0-33.0); MCHC 32.1 % (32.0-36.0); MCV 93 fL (80-95); MPV 11.3 fL (8.0-11.0); Monocytes % 15.7 %; Neutrophils % 57.3 %; Platelet Count 325 10^3/uL (130-400); RBC 4.25 10^6/uL (4.36-5.78); RDW 13.5 % (11.8-14.1); RDW-SD 46.3 fL; WBC 12.02 10^3/uL (4.4-10.8)
[2024-12-07 11:09] LABS: Absolute Basophil Count 0.08 10^3/uL (0.0-0.2); Absolute Eosinophil Count 0.26 10^3/uL (0.0-0.7); Absolute Neutrophil Count 6.89 10^3/uL (1.2-6.7)
[2024-12-07 11:15] LABS: ALT 10 U/L (16-63); AST 18 U/L (15-37); Albumin 2.9 g/dL (3.4-5.0); Alkaline Phosphatase 88 U/L (46-116); BUN 14 mg/dL (7-18); Bilirubin, Total 0.5 mg/dL (0.2-1.0); C-Reactive Protein 5.98 mg/dL (<or=0.5); CREATININE 0.8 mg/dL (0.70-1.30); Calcium 9.2 mg/dL (8.5-10.1); Chloride 101 mmol/L (98-107); Estimated GFR 94.62 (mL/min/1.73m2); Glucose 101 mg/dL (74-106); Potassium 4.1 mmol/L (3.5-5.1); Sodium 139 mmol/L (136-145); Total Protein 7.9 g/dL (6.4-8.2)
[2024-12-07 11:17] LABS: Diff Comment Diff Reviewed; RBC Morphology Normal
== END 2024-12-10 23:59 | disposition home or self-care (01) ==
LOC: INF 10:00
PROVIDERS: PCP Family Medicine; Visit Provider Internal Medicine Infectious Disease
DX: M86.18 Other acute osteomyelitis, other site (principal)
CPT/HCPCS: 36573; 36592; 77001; 80053; 96365; 85025; 86140; J0690

== ENCOUNTER 2024-12-09 15:28 | Emergency (ER) | payer MEDICARE, SELFPAY ==
[2024-12-09] VITALS (8 sets, daily range): BP systolic 128–173; BP diastolic 68–87; PULSE 102–117; RESP 14–18; TEMP 36.9–37.9; O2SAT 95–98
--- NOTE | 2024-12-09 17:22 | ED.GENADUL_ITS ---
Discharge Plan Disposition Patient Disposition: Home Condition: Stable Discharge Details Clinical Impression: Gout, Joint pain Primary Care Provider: JUANJO SAMANO ED Provider: Joe Ingram Home Meds and New Rx's Prescriptions: New prednisone 20 mg tablet See Rx Instructions .ROUTE .COMPLEX Qty: 18 0RF Rx Instructions: Take 60 mg for 3 days, 40 mg for 3 days and then 20 mg for 3 days. acetaminophen 500 mg capsule 1,000 mg PO TID PRN (Reason: pain) Qty: 60 0RF Continued diltiazem HCl 180 mg capsule,extended release 24hr 180 mg PO HS Eliquis 5 mg tablet 5 mg PO BID allopurinol 100 mg tablet 300 mg PO DAILY ibuprofen [IBU] 800 mg tablet 800 mg PO ONCE Patient Comments: pt reports BID cefazolin 10 gram recon soln 10 g IV TID Discharge Instructions Additional Instructions: Follow-up with your fur scraper. Take the prednisone as prescribed. If you feel more ill or have severe worsening pain return to the emergency department for reevaluation HPI General Date/Time Provider Initiated Documentation: 12/09/24 15:35 . Limitations to Documentation: no limitations . Information obtained by: patient . History of Present Illness 69 year old M presents to the emergency department with the chief complaint of right knee and ankle pain, described as moderate, Quality is described as aching, and is localized to the right and lower extremity. Patient reports no radiation. and it has been constant. No relieving factors improve symptom(s), No exacerbating factors reported . Patient notes denies diaphoresis and nausea/vomiting. Patient did receive the following treatments prior to arrival, none Related Data Home Medications ?Medication ?Instructions ?Recorded ?Confirmed apixaban 5 mg tablet (Eliquis) 5 mg PO BID 08/18/24 12/09/24 diltiazem HCl 180 mg 180 mg PO HS 08/18/24 12/09/24 capsule,extended release 24 hr allopurinol 100 mg tablet 300 mg PO DAILY 11/03/24 12/09/24 ibuprofen 800 mg tablet (IBU) 800 mg PO ONCE 11/14/24 12/09/24 acetaminophen 500 mg capsule 1,000 mg (2 x 500 mg) PO TID PRN 12/09/24 pain #60 caps cefazolin 10 gram solution for 10 g IV TID 12/09/24 12/09/24 injection prednisone 20 mg tablet See Rx Instructions .Route 12/09/24 .COMPLEX #18 tabs Previous Rx's ?Medication ?Instructions ?Recorded acetaminophen 500 mg capsule 1,000 mg (2 x 500 mg) PO TID PRN 12/09/24 pain #60 caps prednisone 20 mg tablet See Rx Instructions .Route 12/09/24 .COMPLEX #18 tabs Allergies Allergy/AdvReac Type Severity Reaction Status Date / Time No Known Allergies Allergy Verified 12/09/24 15:33 General Stated Complaint: Orthopedic CARYN: 3 Review of Systems All systems reviewed & are unremarkable except as noted in HPI and below Constitutional Constitutional: Denies chills, Denies fever(s) and Denies weakness Cardiovascular Cardiovascular: Denies chest pain and Denies dyspnea Respiratory Respiratory: Denies cough and Denies dyspnea Gastrointestinal Gastrointestinal: Denies abdominal pain, Denies nausea and Denies vomiting Musculoskeletal Musculoskeletal: Reports joint swelling Neurologic Neurologic: Denies weakness Exam Const General: no acute distress Orientation: alert HENMT Head: normal to inspection Ears: external ears normal General nose exam: external nose normal Mouth: moist mucous membranes Eyes General: appearance normal, both eyes and all related structures Neck Neck: normal visual inspection Resp Effort & Inspection: normal respiratory effort and able to speak in complete sentences Cardio Rate: regular rate Skin General skin exam: no rashes or lesions noted Neuro General: patient alert and patient oriented x3 Extrem General: full ROM and capillary refill normal Psych Mental Status: mental status grossly normal Course Vital Signs Vital signs: Vital Signs Temperature 36.9 C 12/09/24 15:29 Pulse 108 H 12/09/24 15:29 Respiratory Rate 18 12/09/24 15:29 Blood Pressure 155/79 H 12/09/24 15:29 Pulse Oximetry 95 12/09/24 15:29 Temperature 36.9 C 12/09/24 15:29 Temperature Source Oral 12/09/24 15:29 Pulse 108 H 12/09/24 15:29 Respiratory Rate 18 12/09/24 15:29 Blood Pressure 155/79 H 12/09/24 15:29 Pulse Oximetry 95 12/09/24 15:29 Medical Decision Making 69 yo male with hx of gout vs psuedogout and recent metatarsophalangeal joint arthrodesis who comes in with chief complaint of several days of right knee and ankle pain. He says that he has been walking differently since the surgery due to discomfort. He states that earlier had to go 101 but when he got here he was afebrile and without taking any antipyretics. Denies any falls or trauma. He is well-appearing see in full sentences. He has mild swelling of the right knee and right ankle without erythema or warmth. He has full range of motion of both joints and intact distal sensation pulses. I suspect gout and less likely septic arthritis given that in 2 joints, there is no warmth erythema. Will obtain screening labs and x-rays and reassess. Labs show mild leukocytosis which she has had before and is inflammatory markers are increased from baseline. He did have a low-grade temperature of 37.9 here. On reassessment he still has absolutely no erythema anywhere on his leg. The right knee x-ray showed a suprapatella fluid collection. He has no tenderness or erythema in this area and he still is full range of motion of the knee. He also has no evidence of erythema at the surgical site on his foot. I suspect his primary issue is gout in the ankle and he has been ambulating and moving around compensating for this which is probably stressing his knee. Given he has no erythema has full range of motion I still doubt septic joint. He feels well enough for discharge and I feel this is reasonable. He is already on IV cefazolin which he administers at home. He has follow-up this week with podiatry. Mariel put him on a short course of prednisone. Return precautions given Differential Diagnosis Differential Diagnosis: gout, arthritis Medical Records Medical records reviewed: Yes I reviewed the patient's medical records. Lab Data Lab results reviewed: Yes I reviewed the patient's lab results. Quality:[facility] Health Related Social Needs: No Data to Display [facility] All Active Problems (Updated 12/09/24 @ 18:46 by Joe Ingram MD) Joint pain (Acute) Post-op pain (Acute) Achilles tendinitis, right leg (Acute) Ulcer of left foot with fat layer exposed (Acute) Hallux rigidus of right foot (Acute) Osteomyelitis (Acute) Bunion, right foot (Acute) Bunion, left foot (Acute) Cellulitis (Acute) Hypertension (Chronic) Osteoarthritis of knee (Acute) Chronic a-fib (Acute) Foot ulcer (Acute) Arthralgia of ankle (Acute) Arthropathy (Acute) Sleep apnea (Chronic) Osteoarthritis (Chronic) Gout (Chronic) Hyperuricemia (Chronic) Foot pain, left (Acute) Medical History Cellulitis of left foot A-fib Surgical History History of bunionectomy of right great toe 12-13 years ago Hx of inguinal hernia repair x 3 Hx of biopsy R foot Social History Smoking/Tobacco Use Status: Current-Occasional Tobacco Type: cigars Smoking risk assessment performed?: Yes Alcohol Intake: current Alcohol Intake frequency: 3 or more drinks per day Alcohol type: wine Drug use: Occasionally Substance use type: marijuana Details: alcohol: t-1. 1.5 glasses. Marijuana: t-14, smoking, small bowl Housing: house Do you feel safe at home: Yes Do you feel safe in your relationship?: Yes PAWSS Have you Been Recently Intoxicated or Drunk Within the Last 30 days?: No Have you Ever Experienced Previous Episodes of Alcohol Withdrawal?: No Have you ever Experienced Withdrawal Seizures?: No Have you ever Experienced Delirium Tremens(DT)s?: No Have you ever undergone Alcohol Rehabilitation Treatment (i.e, inpt ot outpatient treatment programs)?: No Have you ever Experienced Blackouts?: No Have you ever Combined Alcohol with other Downers within the last 90 days?: No Have you ever Combined Alcohol with any other Substance of Abuse during the last 90 days?: No Positive Blood Alcohol level on Presentation? [PCS.BAL]: No Evidence of Increased Autonomic Activity (i.e. HR>120, tremor, sweating, agitation, nausea)?: No Result: 0
[2024-12-09 17:34] LABS: HCT 39.4 % (40.0-50.0); HGB 12.7 g/dL (13.5-17.5); MCH 29.8 pg (27.0-33.0); MCHC 32.2 % (32.0-36.0); MCV 93 fL (80-95); MPV 11.1 fL (8.0-11.0); Platelet Count 335 10^3/uL (130-400); RBC 4.26 10^6/uL (4.36-5.78); RDW 13.5 % (11.8-14.1); RDW-SD 45.9 fL; WBC 14.11 10^3/uL (4.4-10.8)
[2024-12-09 17:37] LABS: ESR 73 mm/hr (0-20)
[2024-12-09 17:50] LABS: Absolute Eosinophil Count 0.28 10^3/uL (0.0-0.7); Absolute Lymphocyte Count 2.82 10^3/uL (1.2-3.4); Absolute Monocyte Count 1.83 10^3/uL (0.1-0.8); Absolute Neutrophil Count 9.17 10^3/uL (1.2-6.7); Atypical Lymphocytes % 0 %; Bands % 2 %
[2024-12-09 17:51] LABS: Diff Comment Manual Differential; RBC Morphology Normal
[2024-12-09 17:52] LABS: ALT 10 U/L (16-63); AST 17 U/L (15-37); Albumin 2.9 g/dL (3.4-5.0); Alkaline Phosphatase 83 U/L (46-116); Anion Gap 7.8 mmol/L (3-11); BUN 12 mg/dL (7-18); Bilirubin, Total 0.4 mg/dL (0.2-1.0); C-Reactive Protein 16.58 mg/dL (<or=0.5); CO2 28.2 mmol/L (21.0-32.0); CREATININE 0.9 mg/dL (0.70-1.30); Calcium 9.5 mg/dL (8.5-10.1); Chloride 99 mmol/L (98-107); Estimated GFR 91.31 (mL/min/1.73m2); Glucose 113 mg/dL (74-106); Magnesium 1.7 mg/dL (1.8-2.4); Potassium 4.1 mmol/L (3.5-5.1); Sodium 135 mmol/L (136-145); Total Protein 8.4 g/dL (6.4-8.2)
--- NOTE | 2024-12-09 17:54 | DI.RAD_ITS ---
Exam(s) XR ANKLE RT COMPLETE EXAM: XR ANKLE RT COMPLETE CLINICAL HISTORY: pain/swelling. TECHNIQUE: 2D digital imaging was performed. COMPARISON: No exams were available for comparison FINDINGS: 3 views There is prominent soft tissue swelling around both sides the ankle but more prominent on the left si de. There is no evidence of fracture or widening the ankle mortise. Talar dome appears unremarkable and there are minimal if any significant degenerative changes in the tibiotalar joint. There is, however , prominent dorsal beak in the distal dorsal talus and opposing osteophyte on the dorsal proximal asp ect of the navicular. These findings are sometimes associated with osseous tarsal coalition but can be seen independently. There is a tiny inferior calcaneal spur. No radiopaque foreign bodies. IMPRESSION: Soft tissue swelling but no obvious fractures. Other incidental osseous findings as above. DATA REPOSITORY: RADIATION DOSE DELIVERED:
--- NOTE | 2024-12-09 17:55 | DI.RAD_ITS ---
Exam(s) XR KNEE RT 3V AP,LAT,KP EXAM: XR KNEE RT 3V AP,LAT,KP CLINICAL HISTORY: pain/swelling. TECHNIQUE: 2D digital imaging was performed. COMPARISON: No exams were available for comparison FINDINGS: 3 views No evidence of acute fracture but there is a prominent joint effusion noted in the suprapatellar burs a. The density of the distal quadriceps tendon is also less than typical. Density of the patellar l igament appears unremarkable. Minimal degenerative changes in the medial lateral compartments. IMPRESSION: No fractures. Joint effusion. Subtle abnormality is described above in the distal quadriceps region. Correlation with any quadrice ps tendon injury recommended. DATA REPOSITORY: RADIATION DOSE DELIVERED:
[2024-12-09] MEDS: methylPREDNISolone SUCC 125 MG VIAL IVP (17:58)
[2024-12-09] MEDS: Acetaminophen 500 MG TAB 1000 MG PO (19:09)
== END 2024-12-09 19:00 | disposition home or self-care (01) ==
PROVIDERS: Emergency Provider Emergency Medicine; PCP Family Medicine
DX: M10.9 Gout, unspecified (principal); I10 Essential (primary) hypertension; I48.20 Chronic atrial fibrillation, unspecified; F17.290 Nicotine dependence, other tobacco product, uncomplicated; Z79.01 Long term (current) use of anticoagulants
CPT/HCPCS: 36415; 73562; 80053; 85652; 96374; 99284; 73610; 83735; 85025; 86140; J2919

== ENCOUNTER 2024-12-28 02:44 | Outpatient (RCR) | payer MEDICARE, SELFPAY ==
[2024-12-14] MEDS: Normal Saline Flush 10 ML SYR IVP (11:02)
[2024-12-14 11:28] LABS: Abs Immature Grans 0.71 10^3/uL (0.0-0.06); Absolute Basophil Count 0.07 10^3/uL (0.0-0.2); Absolute Monocyte Count 1.28 10^3/uL (0.1-0.8); Basophils % 0.5 %; Eosinophils % 0.6 %; HGB 13.2 g/dL (13.5-17.5); Lymphocytes % 20.7 %; MCH 29.9 pg (27.0-33.0); MCHC 32.2 % (32.0-36.0); MCV 93 fL (80-95); MPV 10.9 fL (8.0-11.0); Neutrophils % 64.2 %; RBC 4.41 10^6/uL (4.36-5.78); RDW 13.7 % (11.8-14.1); RDW-SD 46.6 fL; WBC 14.27 10^3/uL (4.4-10.8)
[2024-12-14 11:30] LABS: Absolute Eosinophil Count 0.09 10^3/uL (0.0-0.7); Absolute Lymphocyte Count 2.95 10^3/uL (1.2-3.4); Absolute Neutrophil Count 9.16 10^3/uL (1.2-6.7)
[2024-12-14 11:42] LABS: ALT 26 U/L (16-63); AST 28 U/L (15-37); Albumin 2.8 g/dL (3.4-5.0); Alkaline Phosphatase 89 U/L (46-116); BUN 15 mg/dL (7-18); Bilirubin, Total 0.2 mg/dL (0.2-1.0); CREATININE 0.7 mg/dL (0.70-1.30); Chloride 105 mmol/L (98-107); Estimated GFR 98.51 (mL/min/1.73m2); Glucose 105 mg/dL (74-106); Potassium 4.3 mmol/L (3.5-5.1); Sodium 140 mmol/L (136-145); Total Protein 7.6 g/dL (6.4-8.2)
[2024-12-14 11:43] LABS: Platelet Count 398 10^3/uL (130-400)
[2024-12-14 11:44] LABS: Diff Comment Agrees w/ Instrument; RBC Morphology Normal
[2024-12-21 11:31] LABS: Abs Immature Grans 0.13 10^3/uL (0.0-0.06); Absolute Basophil Count 0.03 10^3/uL (0.0-0.2); Absolute Eosinophil Count 0.24 10^3/uL (0.0-0.7); Absolute Lymphocyte Count 2.68 10^3/uL (1.2-3.4); Absolute Neutrophil Count 8.59 10^3/uL (1.2-6.7); Basophils % 0.2 %; Eosinophils % 1.9 %; HCT 41.4 % (40.0-50.0); HGB 13.1 g/dL (13.5-17.5); MCH 29.8 pg (27.0-33.0); MCHC 31.6 % (32.0-36.0); MCV 94 fL (80-95); MPV 11.1 fL (8.0-11.0); Monocytes % 8.6 %; Neutrophils % 67.3 %; Platelet Count 266 10^3/uL (130-400); RDW 14.6 % (11.8-14.1); RDW-SD 50.4 fL; WBC 12.77 10^3/uL (4.4-10.8)
[2024-12-21 11:51] LABS: ALT 20 U/L (16-63); AST 15 U/L (15-37); Alkaline Phosphatase 78 U/L (46-116); BUN 13 mg/dL (7-18); Bilirubin, Total 0.9 mg/dL (0.2-1.0); C-Reactive Protein 6.32 mg/dL (<or=0.5); CREATININE 0.8 mg/dL (0.70-1.30); Chloride 102 mmol/L (98-107); Estimated GFR 94.62 (mL/min/1.73m2); Glucose 150 mg/dL (74-106); Potassium 4.2 mmol/L (3.5-5.1); Sodium 139 mmol/L (136-145); Total Protein 7.4 g/dL (6.4-8.2)
[2024-12-21] MEDS: Normal Saline Flush 10 ML SYR IVP (13:27)
[2024-12-28 10:53] LABS: Abs Immature Grans 0.04 10^3/uL (0.0-0.06); Absolute Basophil Count 0.04 10^3/uL (0.0-0.2); Absolute Eosinophil Count 0.37 10^3/uL (0.0-0.7); Absolute Lymphocyte Count 2.08 10^3/uL (1.2-3.4); Absolute Monocyte Count 0.63 10^3/uL (0.1-0.8); Absolute Neutrophil Count 3.88 10^3/uL (1.2-6.7); Basophils % 0.6 %; Eosinophils % 5.3 %; HCT 39.2 % (40.0-50.0); HGB 12.4 g/dL (13.5-17.5); Immature Grans % 0.6 %; Lymphocytes % 29.5 %; MCH 30.2 pg (27.0-33.0); MCHC 31.6 % (32.0-36.0); MCV 95 fL (80-95); MPV 10.8 fL (8.0-11.0); Monocytes % 8.9 %; Neutrophils % 55.1 %; Platelet Count 296 10^3/uL (130-400); RBC 4.11 10^6/uL (4.36-5.78); RDW 14.2 % (11.8-14.1); RDW-SD 49.5 fL; WBC 7.04 10^3/uL (4.4-10.8)
[2024-12-28 10:54] LABS: ESR 38 mm/hr (0-20)
[2024-12-28 11:04] LABS: ALT 16 U/L (16-63); AST 15 U/L (15-37); Albumin 2.9 g/dL (3.4-5.0); Alkaline Phosphatase 72 U/L (46-116); Anion Gap 8.2 mmol/L (3-11); BUN 12 mg/dL (7-18); Bilirubin, Total 0.3 mg/dL (0.2-1.0); CO2 28.8 mmol/L (21.0-32.0); CREATININE 0.8 mg/dL (0.70-1.30); Chloride 106 mmol/L (98-107); Estimated GFR 94.62 (mL/min/1.73m2); Glucose 112 mg/dL (74-106); Potassium 3.8 mmol/L (3.5-5.1); Sodium 143 mmol/L (136-145); Total Protein 7.3 g/dL (6.4-8.2)
== END 2025-01-09 23:59 | disposition home or self-care (01) ==
LOC: INF 02:44
PROVIDERS: Podiatrist; PCP Family Medicine; Visit Provider Internal Medicine Infectious Disease
DX: S91.309A Unspecified open wound, unspecified foot, initial encounter (principal); M86.9 Osteomyelitis, unspecified
CPT/HCPCS: 36592; 80053; 85652; 85025; 86140

== ENCOUNTER 2025-01-05 00:42 | Outpatient (CLI) | payer MEDICARE, SELFPAY ==
--- NOTE | 2025-01-05 08:00 | DI.RAD_ITS ---
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 TECHNIQUE: 2D digital imaging was performed of the right foot. Three images were obtained. AP, oblique and lateral views were obtained. COMPARISON: CR XR FOOT RT COMPLETE from 12/07/2024 FINDINGS: BONES: No acute fracture is present. No bony destructive lesion is seen. JOINTS: No dislocation present. There is a 1st MTP joint fusion. There are no suspicious lucencies about the orthopedic hardware. SOFT TISSUE: Normal. IMPRESSION: There is no acute abnormality. DATA REPOSITORY: RADIATION DOSE DELIVERED:
== END 2025-01-05 01:02 ==
LOC: DI 00:43
PROVIDERS: PCP Family Medicine; Visit Provider Podiatrist
DX: M20.21 Hallux rigidus, right foot (principal)
CPT/HCPCS: 73630

== ENCOUNTER 2025-01-24 02:39 | Outpatient (CLI) | payer MEDICARE, SELFPAY ==
--- NOTE | 2025-01-24 13:00 | DI.RAD_ITS ---
Exam(s) XR FOOT RT COMPLETE EXAM: XR FOOT RT COMPLETE CLINICAL HISTORY: post op pain, G89.18. TECHNIQUE: 2D digital imaging was performed. Three images were obtained. AP, lateral and oblique views were obtained. COMPARISON: CR XR FOOT RT COMPLETE from 01/05/2025 FINDINGS: BONES: There are stable post operative changes of a 1st MTP joint fusion present. No new fracture or dislocation. JOINTS: Mild degenerative changes are seen in the foot. There is a hammertoe deformity of the 2nd toe. SOFT TISSUE: Normal. IMPRESSION: Stable postoperative changes. DATA REPOSITORY: RADIATION DOSE DELIVERED:
== END 2025-01-24 02:59 ==
LOC: DI 02:40
PROVIDERS: PCP Family Medicine; Visit Provider Podiatrist
DX: Z98.890 Other specified postprocedural states (principal); G89.18 Other acute postprocedural pain; M20.21 Hallux rigidus, right foot; M86.9 Osteomyelitis, unspecified; B35.3 Tinea pedis
CPT/HCPCS: 99024; 73630

== ENCOUNTER 2025-03-06 03:21 | Outpatient (CLI) | payer MEDICARE, SELFPAY ==
--- NOTE | 2025-03-06 06:30 | DI.CT_ITS ---
Exam(s) CT LOWER EXTREMITY RT WO EXAM: CT LOWER EXTREMITY RT WO CLINICAL HISTORY: Fused? How much?, HALLUX RIDIGUS RT FOOT, POST OP PAIN, M20.21, G89.18. TECHNIQUE: Imaging Protocol: Axial computed tomography images with coronal and sagittal reformatted images were created and reviewed. COMPARISON: CR XR FOOT RT COMPLETE from 01/24/2025 FINDINGS: Bones: The osseous structures and articular surfaces are intact. There is a 1st MTP joint fusion with a sideplate and screws. The joint is nearly completely fused. There may be some persistent joint space laterally. There arthritic changes seen at the articulation of the head and the sesamoid bones with narrowing of the space and osteophytes. Subchondral cysts are also present. There are degenerative changes seen in the foot particularly at the talonavicular joint and the interphalangeal joints of the toes. No lytic or sclerotic lesions are identified. Soft Tissues: Normal. IMPRESSION: 1. First MTP joint fusion with near complete fusion of the joint space. There appears to be a very small persistence of the joint space laterally. 2. Degenerative changes seen in the foot as described. RADIATION DOSE DELIVERED: 81.9mGy.cm Total DLP 81.9mGy.cm Total DLP DATA REPOSITORY: All CT scans at this facility are submitted to the National Radiology Data Registry (NRDR) Dose Index Registry (DIR) with the [employer] ([employer]). RADIATION OPTIMIZATION: All CT scans at this facility use at least one of these dose optimization techniques: automated exposure control; mA and/or kV adjustment per patient size (includes targeted exams where dose is matched to clinical indication); or iterative reconstruction.
== END 2025-03-06 03:41 ==
LOC: DI 03:22
PROVIDERS: PCP Family Medicine; Visit Provider Podiatrist
DX: M20.21 Hallux rigidus, right foot (principal); G89.18 Other acute postprocedural pain
CPT/HCPCS: 73700

== ENCOUNTER → 2025-03-08 11:09 | Outpatient (BNVA) | payer MEDICARE, SELFPAY | PROVIDERS: PCP Family Medicine; Referring Provider Family Medicine; Visit Provider Podiatrist | DX: Z98.890 Other specified postprocedural states (principal); M20.21 Hallux rigidus, right foot; M20.41 Other hammer toe(s) (acquired), right foot; M21.611 Bunion of right foot; M21.612 Bunion of left foot; M76.61 Achilles tendinitis, right leg | CPT/HCPCS: 99213 ==

== ENCOUNTER 2025-05-10 01:27 | Outpatient (CLI) | payer MEDICARE, SELFPAY ==
--- NOTE | 2025-05-10 07:00 | DI.RAD_ITS ---
Exam(s) XR FOOT RT COMPLETE EXAM: XR FOOT RT COMPLETE CLINICAL HISTORY: F/U HALLUX RIGIDUS RT FOOT,M20.21. TECHNIQUE: 2D digital imaging was performed of the right foot. Three images were obtained. AP, oblique and lateral views were obtained. COMPARISON: CR XR FOOT RT COMPLETE from 12/07/2024 CR XR FOOT RT COMPLETE from 01/05/2025 CR XR FOOT RT COMPLETE from 01/24/2025 FINDINGS: BONES: No acute fracture is present. No bony destructive lesion is seen. JOINTS: No dislocation present. There are stable postsurgical changes seen at the 1st metatarsophalangeal joint. The orthopedic hardware appears stable. Age-appropriate degenerative changes are seen in the foot. SOFT TISSUE: Normal. IMPRESSION: Stable postsurgical changes of the right 1st metatarsophalangeal joint. DATA REPOSITORY: RADIATION DOSE DELIVERED:
== END 2025-05-10 01:47 ==
LOC: DI 01:27
PROVIDERS: PCP Student in an Organized Health Care Education/Training Program; Visit Provider Podiatrist
DX: Z98.890 Other specified postprocedural states (principal); M20.21 Hallux rigidus, right foot; M10.9 Gout, unspecified; M21.612 Bunion of left foot; M21.611 Bunion of right foot; M76.61 Achilles tendinitis, right leg; M20.41 Other hammer toe(s) (acquired), right foot
CPT/HCPCS: 99214; 73630

== ENCOUNTER 2025-06-12 04:16 | Outpatient (CLI) | payer MEDICARE, SELFPAY ==
[2025-06-12 10:09] LABS: Abs Immature Grans 0.14 10^3/uL (0.0-0.06); HCT 42.0 % (40.0-50.0); HGB 13.7 g/dL (13.5-17.5); Immature Grans % 1.4 %; MCH 31.0 pg (27.0-33.0); MCHC 32.6 % (32.0-36.0); MCV 95 fL (80-95); MPV 10.5 fL (8.0-11.0); Platelet Count 303 10^3/uL (130-400); RBC 4.42 10^6/uL (4.36-5.78); RDW 14.1 % (11.8-14.1); RDW-SD 49.1 fL; WBC 10.31 10^3/uL (4.4-10.8)
[2025-06-12 10:11] LABS: ESR 30 mm/hr (0-20)
[2025-06-12 10:46] LABS: C-Reactive Protein 2.20 mg/dL (<=0.50)
== END 2025-06-12 04:17 | disposition home or self-care (01) ==
LOC: LBO 04:16
PROVIDERS: PCP Student in an Organized Health Care Education/Training Program; Visit Provider Podiatrist
DX: M86.9 Osteomyelitis, unspecified (principal)
CPT/HCPCS: 36415; 85652; 85025; 86140

== ENCOUNTER → 2025-06-14 01:18 | Outpatient (CLI) | payer MEDICARE, SELFPAY ==
--- NOTE | 2025-06-14 09:20 | DI.RAD_ITS ---
Exam(s) XR FOOT RT COMPLETE EXAM: XR FOOT RT COMPLETE CLINICAL HISTORY: ? any changes,hallux rigidus rt foot,m20.21. TECHNIQUE: 2D digital imaging was performed of the right foot. Three images were obtained. AP, oblique and lateral views were obtained. COMPARISON: CR XR FOOT RT COMPLETE from 05/10/2025 FINDINGS: BONES: No acute fracture is present. No bony destructive lesion is seen. There are stable postsurgical changes of a 1st MTP joint fusion. There is a hammertoe deformity of the 2nd toe. JOINTS: No dislocation present. Degenerative changes are seen in the interphalangeal joints and the tarsal joints. SOFT TISSUE: Normal. IMPRESSION: 1. There is no acute abnormality. 2. Stable postsurgical changes in the right foot. DATA REPOSITORY: RADIATION DOSE DELIVERED:
== END ==
LOC: DI 01:18
PROVIDERS: PCP Student in an Organized Health Care Education/Training Program; Visit Provider Podiatrist
DX: M20.21 Hallux rigidus, right foot (principal); Z98.890 Other specified postprocedural states; M86.8X7 Other osteomyelitis, ankle and foot; M10.9 Gout, unspecified; M21.611 Bunion of right foot; M21.612 Bunion of left foot; M76.61 Achilles tendinitis, right leg; M20.41 Other hammer toe(s) (acquired), right foot
CPT/HCPCS: 99214; 73630